=== PATIENT | female | born 2000 | race Caucasian/White ===

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

== ENCOUNTER 2018-02-01 19:35 | Emergency (ER) | payer OTHER ==
[~2018-02-01] VITALS: Ht 157.5 cm; Wt 59.0 kg
[~2018-02-01 19:35] MED LIST changes: +Zofran Odt4 MG PO
[2018-02-01] MEDS ORDERED: BENADRYL25 MG PO (20:42)
== END 2018-02-01 20:50 | disposition home or self-care (01) ==
LOC: ER 19:35
DX: T78.40XA Allergy, unspecified, initial encounter (principal); F17.210 Nicotine dependence, cigarettes, uncomplicated; Z91.013 Allergy to seafood
CPT/HCPCS: 99283; J1100; J2250; Q0163

== ENCOUNTER 2018-05-06 17:14 | Emergency (ER) | payer OTHER ==
[~2018-05-06] VITALS: Ht 157.5 cm; Wt 56.7 kg
[~2018-05-06 17:14] MED LIST changes: +BENADRYL25 MG PO
== END 2018-05-06 20:18 | disposition left against medical advice (07) ==
LOC: ER 17:14
DX: Z53.21 Procedure and treatment not carried out due to patient leaving prior to being seen by health care provider (principal); R51 Headache; R10.9 Unspecified abdominal pain; R50.9 Fever, unspecified

== ENCOUNTER 2018-07-01 08:54 | Emergency (ER) | payer OTHER ==
[~2018-07-01] VITALS: Ht 157.5 cm; Wt 54.4 kg
[2018-07-01] MEDS ORDERED: TRIA15CR3 TOP (10:51)
[2018-07-01] MEDS ORDERED: HYDHCL25 PO (10:51)
== END 2018-07-01 11:07 | disposition home or self-care (01) ==
LOC: ER 08:54
DX: L23.7 Allergic contact dermatitis due to plants, except food (principal); Z91.013 Allergy to seafood; G43.909 Migraine, unspecified, not intractable, without status migrainosus; F17.210 Nicotine dependence, cigarettes, uncomplicated
CPT/HCPCS: 96372; 99283-25; J3301

== ENCOUNTER → 2021-05-28 | Outpatient (CLI) | payer OTHER ==
[~2021-05-28] MED LIST changes: +HYDHCL25 PO; +TRIA15CR3 TOP
== END | disposition home or self-care (01) ==
LOC: LAB 14:14 → LAB SHORT 14:14
DX: N39.0 Urinary tract infection, site not specified (principal)
CPT/HCPCS: 87086

== ENCOUNTER 2021-06-11 03:19 | Day surgery (SDC) | payer OTHER | END 2021-06-11 15:40 | disposition home or self-care (01) | LOC: ATC 03:19 | DX: O21.1 Hyperemesis gravidarum with metabolic disturbance (principal); O21.9 Vomiting of pregnancy, unspecified; Z3A.08 8 weeks gestation of pregnancy | CPT/HCPCS: 96361; 96374; J2405; J7121 ==

== ENCOUNTER 2021-06-15 01:48 | Day surgery (SDC) | payer OTHER | END 2021-06-15 11:38 | disposition home or self-care (01) | LOC: ATC 01:48 | DX: O21.1 Hyperemesis gravidarum with metabolic disturbance (principal); Z3A.08 8 weeks gestation of pregnancy | CPT/HCPCS: J2405; J7121 ==

== ENCOUNTER 2021-06-18 01:35 | Day surgery (SDC) | payer OTHER | END 2021-06-18 15:21 | disposition home or self-care (01) | LOC: ATC 01:35 | DX: O21.1 Hyperemesis gravidarum with metabolic disturbance (principal); Z3A.08 8 weeks gestation of pregnancy | CPT/HCPCS: 96361; 96374; J2405; J7121 ==

== ENCOUNTER 2021-06-22 01:22 | Day surgery (SDC) | payer OTHER ==
[2021-06-22] MEDS ORDERED: ONDANSETRON4 MG/2 ML IV (13:44)
== END 2021-06-22 15:47 | disposition home or self-care (01) ==
LOC: ATC 01:22
DX: O21.1 Hyperemesis gravidarum with metabolic disturbance (principal); Z3A.08 8 weeks gestation of pregnancy
CPT/HCPCS: J2405; J7121

== ENCOUNTER 2021-06-30 00:18 | Day surgery (SDC) | payer OTHER ==
[~2021-06-30 00:18] MED LIST changes: +ONDANSETRON4 MG/2 ML IV
== END 2021-06-30 16:19 | disposition home or self-care (01) ==
LOC: ATC 00:18
DX: O21.1 Hyperemesis gravidarum with metabolic disturbance (principal); Z3A.08 8 weeks gestation of pregnancy
CPT/HCPCS: J2405; J7121

== ENCOUNTER 2021-07-03 00:14 | Day surgery (SDC) | payer OTHER | END 2021-07-03 23:05 | disposition home or self-care (01) | LOC: ATC 00:14 | DX: O21.1 Hyperemesis gravidarum with metabolic disturbance (principal); Z3A.08 8 weeks gestation of pregnancy | CPT/HCPCS: J7121 ==

== ENCOUNTER → 2021-11-05 | Outpatient (CLI) | payer OTHER | END | disposition home or self-care (01) | LOC: LAB SHORT 17:00 → LAB 17:00 | PROVIDERS: Advanced Practice Midwife | DX: O60.03 Preterm labor without delivery, third trimester (principal) | CPT/HCPCS: 82731 ==

== ENCOUNTER 2022-01-07 05:28 | Inpatient (IN) | payer OTHER ==
[~2022-01-07] VITALS: Ht 157.5 cm; Wt 78.2 kg
[2022-01-07] MEDS ORDERED: PRENATAL TABLE1 EAC9 PO (05:45)
[2022-01-07 07:04] LABS: BASOPHILS ABSOLUTE AUTO 0.05 K/mm3 (0.00-0.23); BASOPHILS PERCENT AUTO 0 % (0-2); EOSINOPHILS ABSOLUTE AUTO 0.14 K/mm3 (0.00-0.68); EOSINOPHILS PERCENT AUTO 1 % (0-6); Hematocrit 35.9 % (33.0-51.0); Hemoglobin 11.9 g/dL (11.5-16.0); IMMATURE GRAN ABSOLUTE AUTO 0.16 K/mm3 (0.00-0.10); IMMATURE GRAN PERCENT AUTO 1 % (0-1); LYMPHOCYTES ABSOLUTE AUTO 2.98 K/mm3 (0.84-5.20); LYMPHOCYTES PERCENT AUTO 23 % (21-46); MONOCYTES ABSOLUTE AUTO 0.91 K/mm3 (0.16-1.47); MONOCYTES PERCENT AUTO 7 % (4-13); Mean Corpuscular HGB 33.1 pg (26.0-34.0); Mean Corpuscular HGB Conc 33.1 g/dL (31.5-36.5); Mean Corpuscular Volume 100 fL (80-100); Mean Platelet Volume 12.7 fL (9.1-12.4); NEUTROPHILS ABSOLUTE AUTO 9.02 K/mm3 (1.96-9.15); NEUTROPHILS PERCENT AUTO 68 % (41-73); Platelet Count 213 K/mm3 (150-400); RDW Coefficient Variation 17.4 % (11.7-14.2); RDW Standard Deviation 64.1 fL (35.1-46.3); White Blood Cell Count 13.26 K/mm3 (4.00-11.30)
[2022-01-07 08:27] LABS: PCO2 Cord - Arterial 67 mmHg (40-50); pH Cord - Arterial 7.19 (7.28-7.35)
[2022-01-07 08:30] LABS: PCO2 Cord - Venous 41.9 mmHg (40-50); PO2 Cord - Venous 30.4 mmHg (28-32); pH Umbilical Cord - Venous 7.34 (7.26-7.35)
--- NOTE | 2022-01-07 08:30 | NUR ---
01/07/22 0830 Lillian Caro REPEAT SECTION OF VIABLE BABY GIRL AT 0807. CORD BLOOD SENT WITH RN. CORD SEGMENT SENT WITH RT. SEE MD NOTE
--- NOTE | 2022-01-07 11:43 | NUR ---
PROVIDER UPDATED ON SUICIDE RISK SCORE AND PT DENYING CURRENT THOUGHTS OF SELF HARM. ORDER TO D/C SUICIDE PRECAUTIONS.
--- NOTE | 2022-01-07 13:25 | NUR ---
PT REQUESTED AN ICE PACK FOR INCISION, SHE WAS ALSO OFFERED HEAT PAD, SHE DECLINED AND WANTED ICE PACK
--- NOTE | 2022-01-07 18:36 | NUR ---
PT REPORTS HER PAIN IS STILL GOOD, SHE REMOVED THE ICE PACK AND DOESNT FEEL SHE NEEDS IT AT THIS TIME
[2022-01-08 05:56] LABS: BASOPHILS ABSOLUTE AUTO 0.04 K/mm3 (0.00-0.23); BASOPHILS PERCENT AUTO 0 % (0-2); EOSINOPHILS ABSOLUTE AUTO 0.13 K/mm3 (0.00-0.68); EOSINOPHILS PERCENT AUTO 1 % (0-6); Hematocrit 29.1 % (33.0-51.0); Hemoglobin 9.8 g/dL (11.5-16.0); IMMATURE GRAN ABSOLUTE AUTO 0.08 K/mm3 (0.00-0.10); IMMATURE GRAN PERCENT AUTO 1 % (0-1); LYMPHOCYTES ABSOLUTE AUTO 2.07 K/mm3 (0.84-5.20); LYMPHOCYTES PERCENT AUTO 19 % (21-46); MONOCYTES ABSOLUTE AUTO 0.61 K/mm3 (0.16-1.47); MONOCYTES PERCENT AUTO 6 % (4-13); Mean Corpuscular HGB 33.8 pg (26.0-34.0); Mean Corpuscular HGB Conc 33.7 g/dL (31.5-36.5); Mean Corpuscular Volume 100 fL (80-100); Mean Platelet Volume 11.6 fL (9.1-12.4); NEUTROPHILS ABSOLUTE AUTO 7.85 K/mm3 (1.96-9.15); NEUTROPHILS PERCENT AUTO 73 % (41-73); Platelet Count 167 K/mm3 (150-400); RDW Coefficient Variation 17.6 % (11.7-14.2); RDW Standard Deviation 64.7 fL (35.1-46.3); White Blood Cell Count 10.78 K/mm3 (4.00-11.30)
[2022-01-09] MEDS ORDERED: IBUP800 PO (09:46)
[2022-01-09] MEDS ORDERED: Percocet 5-3251 EACH PO (09:46)
[2022-01-09] MEDS ORDERED: DOCU100 PO (09:47)
== END 2022-01-09 11:40 | disposition home or self-care (01) | DRG 788 ==
LOC: BC 05:28
PROVIDERS: ADMIT Obstetrics & Gynecology
PROC: 10D00Z1 Extraction of Products of Conception, Low, Open Approach (ICD-10-PCS; principal; 2022-01-07 07:30)
DX: O34.211 Maternal care for low transverse scar from previous cesarean delivery (principal); Z3A.39 39 weeks gestation of pregnancy; Z37.0 Single live birth; Z79.899 Other long term (current) drug therapy
CPT/HCPCS: 36415; 82803; 85025; 85460; 86850; 86900; 86901; 96372; A9270; J0690; J1885; J2270; J2370; J2405; J2791; J7120

== ENCOUNTER 2023-04-11 16:21 | Emergency (ER) | payer OTHER ==
[~2023-04-11] VITALS: Ht 157.5 cm; Wt 61.2 kg
[~2023-04-11 16:21] MED LIST changes: +DOCU100 PO; +IBUP800 PO; +PRENATAL TABLE1 EAC9 PO; +Percocet 5-3251 EACH PO
[2023-04-11 16:25] VITALS: BP 158/89
== END 2023-04-11 18:19 | disposition home or self-care (01) ==
LOC: ER 16:21
DX: G43.909 Migraine, unspecified, not intractable, without status migrainosus (principal); R10.33 Periumbilical pain; Z91.013 Allergy to seafood; Z91.048 Other nonmedicinal substance allergy status
CPT/HCPCS: 96361; 96374; 96375; 99283-25; J0780; J1200; J1885; J7030